=== PATIENT | male | born 1945 | race Caucasian/White ===

== ENCOUNTER 2016-11-01 15:09 | Inpatient (IN) | payer MEDICARE, OTHER ==
[~2016-11-01] VITALS: Ht 172.7 cm; Wt 61.1 kg
[2016-11-01 15:13] VITALS: BP 152/82; PULSE 78; RESP 16; O2SAT 98
--- NOTE | 2016-11-01 16:06 | DRSVH ---
PROCEDURE: X-RAY CHEST ONE VIEW, PORTABLE ([id number]) INDICATIONS: CP TECHNIQUE: One view of the chest was acquired. COMPARISON: None. FINDINGS: Surgical changes and devices: None. Lungs and pleura: Normal appearance of streaky opacity within the right base. Mediastinum: Mediastinal contours appear normal. Heart size is normal. Bones and chest wall: No suspicious bony lesions. Overlying soft tissues appear unremarkable. IMPRESSION: Minimal right basilar streaky opacity. This could represent atelectasis, focal edema or p otentially developing infiltrate. Dictated by: Melissa Amaya M.D. on 11/01/2016 at 16:01 Approved by: Melissa Amaya M.D. on 11/01/2016 at 16:04
[2016-11-01 16:07] LABS: BASOPHILS % (AUTO) 0.3 % (0-3); EOSINOPHILS % (AUTO) 0.9 % (0-5); MONOCYTES % (AUTO) 5.3 % (4-12); Mean Corpuscular Volume 96.8 fL (81-100); NEUTROPHILS % (AUTO) 80.3 % (40-74); Platelet Count 216 bil/L (150-400)
--- NOTE | 2016-11-01 16:13 | ED.REPORT ---
HPI-Chest Pain 40 and Over Date of Service Nov 01, 2016 ED Provider: Rush Shi MD A 71 year old male with a history of DM and hypothyroidism presents to the ED with intermittent chest pain onset 1.5 weeks ago, while hiking. The patient had a stress test yesterday, which was not immediately alarming but "brought up some concerns" per the patient, although he cannot recall the exact findings. This morning, the patient experienced one hour of dull, constant substernal chest pain rated 5/10 onset an hour after waking up and another three hour episode this afternoon from [id number]. The patient took ASA today and Nitro x1 just prior to arrival, with relief of his pain. He stopped taking his prescribed Metoprolol for the stress test but restarted this medication last night. The patient denies shortness of breath, nausea, diaphoresis, fever, cough , constipation, abdominal pain, melena, hematochezia, or other symptoms. He has never had similar symptoms in the past. Nursing Notes Stated Complaint: CHEST PAIN Chief Complaint: Chest Pain Nursing Notes Reviewed: Yes Allergies: Coded Allergies: No Known Allergies (Unverified , 11/01/16) Scheduled Aspirin Chew (Aspirin Chew) 81 Mg Chew 81 MG PO QAM Glipizide (Glipizide) 10 Mg Tablet 10 MG PO BIDWM Levothyroxine (Levothyroxine) 150 Mcg Tablet 150 MCG PO QAM Lovastatin (Lovastatin) 20 Mg Tablet 40 MG PO HS Metformin (Glucophage) 1,000 Mg Tablet 1,000 MG PO BIDWM Metoprolol Tartrate (Metoprolol Tartrate) 25 Mg Tablet 25 MG PO BID Scheduled PRN Nitroglycerin SL (Nitroglycerin SL) 0.4 Mg Tab.subl 0.4 MG SL Q5MIN PRN PRN For Chest Pain General Time Seen by MD: 16:12 Chief Complaint Chest pain Hx Obtained From: Patient Arrived By: Walk-in Sudden in Onset?: Yes Onset Occurred: More than a week ago... (1.5 weeks ago, most recent episode onset 1100 this morning) Symptom Duration: Intermittent Location: : Substernal Quality: Painful Severity: Current: Moderate Severity: Maximum: Moderate Associated with: Denies: Cough, non-productive, Diaphoresis, Fever, Nausea, Shortness of Breath Pertinent Negative: Relieved by nothing Context Related History: Reports: Diabetes mellitus Recent Healthcare: Recent doctor visit Similar Sx Previous: No Past Medical History Past Medical History Diabetes type 2 Hypothyroid Past Surgical History None reported Family History Denies cardiac history Father of liver cancer Smoking History Former Smoker Social History Other Social History: Ambulatory Status Independent Review of Systems Constitutional: Denies: Fever Respiratory: Reports: Non-productive cough, Denies: Shortness of breath Cardiovascular: Reports: Chest pain GI: Denies: Abdominal pain, Constipation, Hematochezia, Melena, Nausea, Vomiting Skin: Denies Diaphoresis Complete sys rev & neg: except as marked. Physical Exam Initial Vital Signs Vital Signs (First) Date Time Temp Pulse Resp B/P Pulse Ox O2 Delivery O2 Flow Rate FiO2 11/01/16 15:13 36.6 78 16 152/82 98 Room Air Initial VS: Reviewed Head / Eyes: Atraumatic, Normocephalic Skin: Warm, Dry, No cyanosis Neurologic: Alert, Oriented, Nonfocal Psychiatric: Mood/affect normal, Behavior normal, Normal thought content General/Constitutional: Awake, Alert Respiratory / Chest: Breath sounds NL, Breath sounds = bilat, No respiratory distress Cardiovascular: Heart rate NL, Regular rhythm, Heart sounds NL, No gallop, No murmurs, No rubs Abdomen: Soft, Non-tender Interpretation & Diagnostics Lab Results Interpretation Result Diagram: 11/01/16 1553 11/01/16 1553 Test 11/01/16 15:53 White Blood Count 6.4th/mm3 (3.8-10.1) Red Blood Count 4.31mil/mm3 (4.40-5.80) Hemoglobin 13.8g/dL (13.8-17.2) Hematocrit 41.7% (41.0-50.0) Mean Corpuscular Volume 96.8fL (81-100) Mean Corpuscular Hemoglobin 32.0pg (27.0-35.0) Mean Corpuscular Hemoglobin Concent 33.1% (32.0-37.0) Red Cell Distribution Width 12.0% (12.3-15.4) Platelet Count 216bil/L (150-400) Neutrophils (%) (Auto) 80.3% (40-74) Lymphocytes (%) (Auto) 13.2% (14-46) Monocytes (%) (Auto) 5.3% (4-12) Eosinophils (%) (Auto) 0.9% (0-5) Basophils (%) (Auto) 0.3% (0-3) Sodium Level 138mEq/L (134-144) Potassium Level 4.7mEq/L (3.5-5.2) Chloride Level 100mEq/L (97-108) Carbon Dioxide Level 22mmol/L (18-29) Blood Urea Nitrogen 22mg/dL (8-27) Creatinine 1.07mg/dL (0.76-1.27) Estimat Glomerular Filtration Rate 72mL/min (>59) Glucose Level 262mg/dL (60-99) Calcium Level 9.5mg/dL (8.5-10.1) Magnesium Level 2.0mg/dL (1.6-2.6) Total Bilirubin 0.2mg/dL (0.0-1.2) Aspartate Amino Transf (AST/SGOT) 19U/L (0-50) Alanine Aminotransferase (ALT/SGPT) 15U/L (0-44) Alkaline Phosphatase 55U/L (25-160) Total Protein 7.0g/dL (6.4-8.4) Albumin 4.2g/dL (3.4-5.0) Thyroid Stimulating Hormone (TSH) 0.076uIU/mL (0.450-4.500) Hold Rao Top Tube Received (Received) ECG Interpretation ECG Interpretation: Sinus rhythm rate 75 Anteroseptal infarct, age indeterminant Time: 15:26 Interpreted by: ED physician ECG Interpretation: Sinus rhythm rate 71 Anteroseptal infarct, age indeterminant Lateral leads also involved Lateral T-wave inversions and ST changes resolved. Time: 16:44 Interpreted by: ED physician ECG Interpretation: Sinus rhythm rate 67 Nonspecific intraventricular conduction delay Anteroseptal infarct, age indeterminate Lateral leads also involved Nothing acute Time: 18:23 Interpreted by: ED physician X-Ray Chest Interpretation Chest Xray Interpretation: IMPRESSION: Minimal right basilar streaky opacity. This could represent atelectasis, focal edema or potentially developing infiltrate. Dictated by: Melissa Amaya M.D. on 11/01/2016 at 16:01 View: Portable, 1 view Interpretation / Wet Read by: Interpret - Radiologist Re-Eval/Medical Decision Med Decision/Clinical Course 71 year old male with recent onset of anginal type symptoms and an abnormal stress test yeseterday. Two episodes of non-exertional CP today, initail ECG suggestive of ischemia and changes improved with rest. Now pain free. On B marek and statin and ASA. heparin drip started. antiplatelet agent started. Will admit to hospitalist with cardiology conuslting. Time of Eval: 17:57 Patient Status: Condition improved Re-Evaluation/Progress Note: Discussed with patient lab and x-ray results, diagnosis, and plan for admit. Patient agrees with plan for care and all questions were addressed. Consultation #1: Referral / Consult Name: Madison Andrade MD Consulted With: Cardiology Call Returned at: 17:20 Club Lounge Attendant: Agrees with eval, Agrees with plan Note: Discussed patient's case. Recommends bed rest and Brilinta. Consultation #2: Referral / Consult Name: Nagi Mukherjee MD Consulted With: Hospitalist Call Returned at: 18:00 Club Lounge Attendant: Agrees with eval, Agrees with plan, Accepts admit Counseled Regarding: Diagnosis, Lab results, Need for admission Discharge & Departure Primary Impression: NSTEMI (non-ST elevated myocardial infarction) Disposition: ADMITTED TO HOSPITAL Discharge Condition All VS Reviewed: Yes Condition: Improved Referrals: Scotty Renee MD Attestation Portions of this note were transcribed by Xenia Montiel. I, Dr. Shi, personally performed the history, physical exam, and medical decision-making; I reviewed and confirmed the accuracy of the information in the transcribed note. Signed by: Julia Vegas, 11/01/2016, 23:15 copies to: Scotty Renee MD, Donald L MD Nov 01, 2016 16:13 XENIA MONTIEL Nov 01, 2016 16:25 Rush Shi MD Nov 01, 2016 16:13 XENIA MONTIEL Nov 01, 2016 16:25
[2016-11-01 16:25] LABS: TROPONIN T 0.022 ug/L (0.0-0.011)
[2016-11-01] MEDS ORDERED: Nitroglycerin 2% 1 Gm Ointment TOPICAL SCH (16:30)
[2016-11-01 17:06] VITALS: BP 133/70; PULSE 71; RESP 16; O2SAT 97
[2016-11-01] MEDS ORDERED: Heparin 5,000 Unit/mL Inj IVPUSH ONE (17:25)
[2016-11-01] MEDS ORDERED: Heparin 25K Unit/500mL 0.45 NS 25,000 UNIT in IV Premix 1 EACH IV SCH (17:25)
[2016-11-01] MEDS ORDERED: Heparin 5,000 Unit/mL Inj IVPUSH PRN (17:25)
[2016-11-01] MEDS ORDERED: Senna-Docusate 8.6-50 mg Tablet PO PRN (17:45)
[2016-11-01] MEDS ORDERED: Atropine 1 mg/10 mL (Code) Syringe IVPUSH PRN (17:45)
[2016-11-01] MEDS ORDERED: Polyethylene Glycol (PEG) 17 Gm Powder PO PRN (17:45)
[2016-11-01] MEDS ORDERED: Ondansetron 2 mg/mL 2 mL Inj IVPUSH PRN (17:45)
[2016-11-01] MEDS ORDERED: Alum-Mag Hydrox-Simeth 30 mL Suspension PO PRN (17:45)
[2016-11-01] MEDS ORDERED: GLIP10TA10 PO (18:09)
[2016-11-01] MEDS ORDERED: LEVO150T5 PO (18:09)
[2016-11-01] MEDS ORDERED: METO25TA6 PO (18:09)
[2016-11-01] MEDS ORDERED: ASPI81TA3 PO (18:09)
[2016-11-01] MEDS ORDERED: METF1000 PO (18:09)
[2016-11-01] MEDS ORDERED: LOVA20TA PO (18:09)
[2016-11-01] MEDS ORDERED: NITR0.4T6 SL (18:09)
[2016-11-01 18:10] LABS: Creatine Kinase 84 U/L (21-232)
[2016-11-01 18:32] VITALS: BP 122/70; PULSE 73; RESP 17; O2SAT 98
[2016-11-01] MEDS ORDERED: Glucose 40% Oral Gel 15 Gm Tube PO PRN (18:45)
[2016-11-01 19:30] VITALS: BP 147/81; PULSE 76; RESP 17; O2SAT 99
[2016-11-01 19:45] VITALS: BP 131/74; PULSE 70; RESP 16; O2SAT 98
--- NOTE | 2016-11-01 19:45 | NUR ---
Admission to [facility] Room 2002 Pt arrived on a gurney with and personal belongings and a Cardiac Heparin drip running at 800Units/Hr. Pt was able to walk from gurney in hallway to bed in room with a steady gait and no c/o chest pain, SOB, weakness, or dizziness. Pt is AOx3, NGUYEN, and VSS. Pt is to be made NPO at midnight for possible dental laboratory assistant in the AM. Pt normally uses glipizide and metformin for DM2 when at home. Pt is to use sliding scale Lispro during stay and pt has been educated on this.
[2016-11-01 20:08] LABS: APPEARANCE,URINE CLEAR (CLEAR,HAZY); COLOR,URINE YELLOW (YELLOW); OCCULT BLOOD,URINE TRACE (NEGATIVE); UROBILINOGEN,URINE NORMAL (NORMAL)
--- NOTE | 2016-11-01 20:13 | PCM.HPMED ---
Subjective Date of Service Nov 01, 2016 Primary Provider: Admitting Physician: Nagi Mukherjee MD Primary Care Physician: Scotty Renee MD Attending Physician: Nagi Mukherjee MD Admit Status: From the Emergency Department, Full Admit, [facility] Telemetry Chief Complaint: Chest pain History of Present Illness: Scotty Mcrea is a 71 year old male with Diabetes and hypothyroidism presents to [facility] emergency department with intermittent chest pain. Patient reported the onset was a weeks ago, while hiking. Episodes had been waxing and waning with intermittent onset. This morning, the patient experienced one hour of dull, constant substernal chest pain rated 5/10, non radiating and another three hour episode this afternoon from [id number]. The patient took ASA today and Nitro x1 just prior to arrival, with some relief of his pain. Denies shortness of breath, nausea, diaphoresis, fever, cough, constipation, abdominal pain, melena, hematochezia. He has never had similar symptoms in the past. He was prescribed Metoprolol for the stress test his abnormal stress test yesterday at [facility]. He took the first dose last night Case discussed with Dr Shi, he spoke to Dr Lantigua who recommended admission, Heparin drip as well as initiating Ticagrelor. Review of Systems: Pertinent positives as noted in HPI. All other systems were reviewed and are negative Allergies Coded Allergies: No Known Allergies (Unverified , 11/01/16) Home Medications Lovastatin 40 mg HS Metoprolol 25 mg bid Nitroglycerine PRN Aspirin 81 mg daily Glipizide 10 mg bid Levothyroxine 150 mg daily Metformin 1000 mg bid PMH Diabetes type 2 Hypothyroid Hyperlipidemia . Surgical History None reported Family History Denies cardiac history Father of liver cancer Sister had pacemaker placed Social History Hx Alcohol Use: No Hx Substance Use: No Hx Tobacco Use: Yes Smoking Status: Former Smoker Living Arrangement: with Family (with ) Exam Vital Signs Vital Sign - Last Date Time Temp Pulse Resp B/P Pulse Ox O2 Delivery O2 Flow Rate FiO2 11/01/16 17:06 36.7 71 16 133/70 97 Room Air Exam General: Alert, Oriented X3, Cooperative, No acute Distress Eyes: PERRLA, Scleral Anicteric Mouth: Mouth Normal, Mucous Membranes Moist/Rodey Neck: Supple, no Thyromegaly, trachea central. Chest & Lungs: Clear to auscultation & percussion, No adventitious breath sounds, no crackles, no wheeze Cardiovascular: Normal S1, Normal S2, No Murmurs/Rubs/Gallops, Regular Rate/ Rhythm, (No JVD, no peripheral edema) Pulses: Radial (present and equal), Dorsalis Pedi (present and equal) Abdomen: Soft, Non-tender, Non-distended, Normoactive bowel tones. Musculoskeletal: Unremarkable. Normal range of motion, no swollen or erythematous joints Extremities: No edema, no cyanosis, no clubbing. Skin: No rashes. Warm and dry, no erythematous areas Neurological: Grossly neurologically intact, Normal Speech, Sensation Intact Lymphatic: Lymph nodes Cervical and Axillary not palpable. Lab and Diagnostics Labs Laboratory Tests Test 11/01/16 15:53 White Blood Count 6.4th/mm3 (3.8-10.1) Red Blood Count 4.31mil/mm3 (4.40-5.80) Hemoglobin 13.8g/dL (13.8-17.2) Hematocrit 41.7% (41.0-50.0) Mean Corpuscular Volume 96.8fL (81-100) Mean Corpuscular Hemoglobin 32.0pg (27.0-35.0) Mean Corpuscular Hemoglobin Concent 33.1% (32.0-37.0) Red Cell Distribution Width 12.0% (12.3-15.4) Platelet Count 216bil/L (150-400) Neutrophils (%) (Auto) 80.3% (40-74) Lymphocytes (%) (Auto) 13.2% (14-46) Monocytes (%) (Auto) 5.3% (4-12) Eosinophils (%) (Auto) 0.9% (0-5) Basophils (%) (Auto) 0.3% (0-3) Sodium Level 138mEq/L (134-144) Potassium Level 4.7mEq/L (3.5-5.2) Chloride Level 100mEq/L (97-108) Carbon Dioxide Level 22mmol/L (18-29) Blood Urea Nitrogen 22mg/dL (8-27) Creatinine 1.07mg/dL (0.76-1.27) Estimat Glomerular Filtration Rate 72mL/min (>59) Glucose Level 262mg/dL (60-99) Calcium Level 9.5mg/dL (8.5-10.1) Magnesium Level 2.0mg/dL (1.6-2.6) Total Bilirubin 0.2mg/dL (0.0-1.2) Aspartate Amino Transf (AST/SGOT) 19U/L (0-50) Alanine Aminotransferase (ALT/SGPT) 15U/L (0-44) Alkaline Phosphatase 55U/L (25-160) Total Creatine Kinase 84U/L (21-232) Creatine Kinase MB 5.1ng/mL (0.0-10.4) Creatine Kinase MB % % (0.0-5.0) Troponin T 0.022ug/L (0.0-0.011) Total Protein 7.0g/dL (6.4-8.4) Albumin 4.2g/dL (3.4-5.0) Thyroid Stimulating Hormone (TSH) 0.076uIU/mL (0.450-4.500) Hold Rao Top Tube Received (Received) Result Diagram: 11/01/16 1553 11/01/16 1553 X-Rays, CTs and MRIs X-RAY CHEST ONE VIEW, PORTABLE 11/01 Bones and chest wall: No suspicious bony lesions. Overlying soft tissues appear unremarkable. IMPRESSION: Minimal right basilar streaky opacity. This could represent atelectasis, focal edema or potentially developing infiltrate. Dictated by: Melissa Amaya M.D. on 11/01/2016 at 16:01 Approved by: Melissa Amaya M.D. on 11/01/2016 at 16:04 Assessment & Plan Scotty Mcrae is a 71 year old male with Diabetes and hypothyroidism presents to [facility] emergency department with intermittent chest pain 1. Non ST elevation Myocardial infarct. Present on admission Risks factors for acute coronary syndrome includes sex and age, Diabetes, Hyperlipidemia and former smoker. - monitor on telemetry - Heparin drip for anticoagulation - Antiplatelet therapy with Aspirin 81 mg and Ticagrelor - trending cardiac biomarkers - nothing by mouth after midnight - anticipate possible Cardiac catheterization tomorrow 2. Diabetes Type 2 - holding Metformin and Glipizide - medium Lispro correction algorithm - checking A1c 3. Hypothyroidism - TSH low - decreasing Synthroid dose to 100 mcg daily - recommend checking TSH in 4-6 weeks 4. Dyslipidemia - checking lipids - continuing Lovastatin - Acetaminophen as needed for mild pain/fever/headache - Bowel regimen as needed - Antiemetic as needed Patient admitted under inpatient status with expected length of stay > 2 midnights for severity of present symptoms, complexities of treatment plan and risk for adverse event . Resuscitation Status: CPR: Attempt Resuscitation Nagi Mukherjee MD Nov 01, 2016 18:37
[2016-11-01] MEDS: Insulin LISPRO 300 Unit/3 mL Inj SUBQ SCH (20:26)
[2016-11-01 23:18] VITALS: BP 125/69; PULSE 71; RESP 16; O2SAT 98
[2016-11-01] MEDS: 0.9% Sodium Chloride 1,000 ML IV SCH (23:18)
[2016-11-02] VITALS (10 sets, daily range): BP systolic 102–137; BP diastolic 57–99; PULSE 67–89; RESP 16–20; O2SAT 96–98
[2016-11-02] MEDS: Sodium Chloride LOK Flush 10 mL Syringe IVFLUSH SCH ×3 (00:30→16:30)
[2016-11-02 01:20] LABS: TROPONIN T 0.079 ug/L (0.0-0.011)
[2016-11-02 05:34] LABS: BASOPHILS % (AUTO) 0.4 % (0-3); EOSINOPHILS % (AUTO) 0.9 % (0-5); MONOCYTES % (AUTO) 7.5 % (4-12); Mean Corpuscular Hemoglobin 31.8 pg (27.0-35.0); Mean Corpuscular Volume 95.8 fL (81-100); NEUTROPHILS % (AUTO) 75.6 % (40-74); Platelet Count 220 bil/L (150-400)
[2016-11-02] MEDS: 0.9% Sodium Chloride 1,000 ML IV SCH (06:07)
[2016-11-02] MEDS: Insulin LISPRO 300 Unit/3 mL Inj SUBQ SCH ×4 (08:00→21:41)
[2016-11-02] MEDS ORDERED: Heparin 1,000 Unit/mL 10 mL Inj ONE (10:03)
[2016-11-02] MEDS ORDERED: Heparin 1,000 Units/500 mL NS Premix IV ONE (10:03)
[2016-11-02] MEDS ORDERED: 0.9% Sodium Chloride 2,000 ML ONE (10:03)
[2016-11-02] MEDS ORDERED: fentaNYL-PF 50 mCg/mL 2 mL Inj ONE ×2 (10:35→12:10)
[2016-11-02] MEDS ORDERED: Atropine 1 mg/10 mL (Code) Syringe ONE (11:24)
[2016-11-02] MEDS ORDERED: Phenylephrine/NS-PF 100 mCg/mL 5 mL Syringe IVPUSH ONE (11:24)
--- NOTE | 2016-11-02 11:49 | NUR ---
Social Work: Initial Assessment Attempt Pearl Digger attempted to complete initial assessment, but patient is off of the floor for and echo. SW will continue to try and complete initial assessment. Michaela Alex, BEATRICE, ACM
[2016-11-02] MEDS ORDERED: ALPRAZolam 0.5 mg Tablet PO ONE (13:05)
[2016-11-02] MEDS ORDERED: Abciximab Bolus 2 mg/mL 5 mL Inj ONE (13:28)
[2016-11-02] MEDS ORDERED: 0.9% Sodium Chloride 250 ML BOLUS IV PRN (14:45)
[2016-11-02] MEDS ORDERED: Sodium Chloride LOK Flush 10 mL Syringe IVFLUSH PRN (14:45)
[2016-11-02] MEDS ORDERED: Atropine 1 mg/10 mL (Code) Syringe IVPUSH PRN (14:45)
[2016-11-02] MEDS ORDERED: HYDROcodone-APAP 5-325 mg Tablet PO PRN (14:45)
[2016-11-02] MEDS ORDERED: Ondansetron 2 mg/mL 2 mL Inj IVPUSH PRN (14:45)
[2016-11-02] MEDS ORDERED: 0.9% Sodium Chloride 400 ML (4 HRS) IV ONE (14:45)
--- NOTE | 2016-11-02 15:20 | CONS ---
[address] [address] CONSULTATION REPORT PATIENT: COOKIE ANGLIN : 1945 MR#: [id number] ADMIT: 11/01/2016 JOB ID: [id number] DATE OF SERVICE: 11/02/2016 CHIEF COMPLAINT: I was asked by the hospital team to consult on this patient given chest pain, abnormal EKG, and evidence for non-STEMI. HISTORY OF PRESENT ILLNESS: The patient is a 71-year-old man with past medical history significant for hypertension, hyperlipidemia, as well as hypothyroidism and diabetes. He told me that he has never been in the hospital before. He has been noticing exertional chest pain and actually had a stress test performed by his primary care provider during which he had chest pain and EKG changes. He was in the process of being referred to see a supervisor evaporator based upon the stress test but things got too bad and he started getting progressively worse chest pain. He came to the ED last night and had abnormal EKG changes in the anterolateral leads suggestive of LAD disease. He was admitted to the hospital, placed on heparin, and is now chest pain free. In the interim, his troponin has become mildly positive. As noted before, until recently he has not had any problems with chest pain, shortness of breath. He only recently started getting worsening discomfort. He denies orthopnea, PND, lower extremity edema, palpitations, presyncope, syncope. PAST MEDICAL HISTORY/PROBLEM LIST: 1. Hyperlipidemia. 2. Diabetes. 3. Hypothyroidism. MEDICATIONS AT HOME: Include: 1. Lovastatin 40 mg q.h.s. 2. Metoprolol 25 b.i.d. 3. Aspirin 81 mg a day. 4. Glipizide 10 b.i.d. 5. Levothyroxine 150 daily. 6. Metformin 1000 mg b.i.d. ALLERGIES: No known drug allergies. SOCIAL HISTORY: Former tobacco use. No significant alcohol use. FAMILY HISTORY: Sister had a pacemaker placed. REVIEW OF SYSTEMS: Overall health: No fevers, chills, night sweats, or weight loss. GI: Denies problems with ulcers or blood in his stool. : No dysuria, no hematuria. Pulmonary: No history of lung disease. Neuro: No history of chronic headaches or strokes. Endocrine: No heat or cold intolerance. His TSH is low and they made modification of his thyroid dose. Musculoskeletal: No joint pain or swelling. Derm: No rashes or skin breakdown. Heme: No easy bruising or bleeding. ENT: No difficulties: No sore throat. Ophtho: No vision changes. Psych: No acute issues. All review of systems on a 12-point review of system are negative. PHYSICAL EXAMINATION: Blood pressure is 131/71. He is afebrile. Heart rate 75, sats are 98% on room air. General: In no acute distress. Speaking in full sentences without apparent shortness of breath. Head and neck exam: Normocephalic, atraumatic. Neck: No obvious JV distention. Heart: Regular rate and rhythm without murmurs, gallops, rubs appreciated. Lungs clear to auscultation bilaterally. Abdomen soft, nondistended, nontender. Back: No CVA tenderness to palpation. Extremities are warm. No appreciable edema, 2+ distal pulses. Skin without breakdown appreciated. Neurologic: Alert, oriented x3. Gait is not tested. Psych: Appropriate mood affect. ENT: Mucous membranes moist. No erythema. Ophtho: Vision grossly intact. EKG shows sinus rhythm with T-wave changes in the anterolateral leads concerning for left anterior descending artery disease. LABORATORIES: Show a white count 5.7, H and H 12.9, 38.9, platelets 220,000. Chemistry shows sodium 140, potassium 4.3, chloride and bicarb 103 and 21, respectively. BUN and creatinine 17 and 0.81. Troponin went from 0.079 to 0.161. CK-MB was elevated but not CK. LDL 68, HDL 64. Free T4 was sent and is at the upper limits of normal. The TSH was low. IMAGING: Shows a chest x-ray that shows minimal right basilar streaky opacity. Could represent atelectasis or question developing infiltrate. CURRENT MEDICATIONS: Include: 1. Metoprolol 25 b.i.d. 2. Aspirin 81 mg a day. 3. Levothyroxine 100 mcg a day. 4. Heparin drip. 5. Lipitor 10 mg q.h.s. (I presume this is because lovastatin is not available). 6. He is not on diabetic meds at this time. IMPRESSION: The patient has a history of hyperlipidemia, hypertension. He has progressive exertional chest discomfort and a abnormal treadmill test. He was in the process of getting a supervisor evaporator but had worsening symptoms. He now presents with an abnormal electrocardiogram, mildly elevated troponin. PLAN: I have discussed cardiac catheterization with him. I have discussed the risks and benefits. I discussed different types of stents including bare-metal stents as well as medicated stents. I explained the different lengths of time that Plavix and aspirin would be needed if he had a medicated stent versus a bare-metal stent. Also discussed the different risks of re-narrowing. I also discussed the possibly that if there is significant other disease, bypass would have to be considered. He denies any bleeding problems. He denies any upcoming surgeries that require him to hold Plavix. He feels that he would be able to tolerate whatever kind of stent is placed in him. I spent one hour reviewing the patient's records, speaking with him and examining him as well as communicating with the hospitalist team ROSIE
--- NOTE | 2016-11-02 15:40 | NUR ---
[facility] signed
--- NOTE | 2016-11-02 16:04 | DRSVH ---
[facility] [address] [place] [place] [address] Echocardiogram Report Name: COOKIE ANGLIN te: 11/02/2016 Height: 68 in Hospital Exam Location: [facility] Weight: 137 lb Gender: Male BSA: 1.7 m2 : 1945 Age: 71 yrs BP: 137/71 mmHg Reason For Study: CHEST PAIN Ordering Physician: EMMA JESUS Performed By: Thang Ferrer Referring Physician: Dr. Cookie Renee Interpretation Summary 1. Normal left ventricular size and wall thickness with wall motion abnormalities as noted below. The estimated EF is 45 to 50% 2. Normal right ventricular size and systolic function 3. No evidence for significant valvular pathology There is no old study for comparison Procedure: A two-dimensional transthoracic echocardiogram with color flow and Doppler was performed. The study quality was technically good. There is no prior echocardiogram noted for this patient. The patient was in normal sinus rhythm during the exam. Left Ventricle: The left ventricle is normal in size. There is normal left ventricular wall thickness. No thrombus is appreciated in the sampled views. The ejection fraction is estimated to be 45-50%. EF by biplane assessment is 51%. Hypokinesis of the distal anterior septum and apical inferior septum. There is also hypokinesis of the distal anterior and apical anterolateral and inferior segments. Right Ventricle: The right ventricle is normal in size and function. Atria: Both atria are normal in size. No color doppler evidence for an ASD. Mitral Valve: The mitral valve is normal in structure and function. There is trace mitral regurgitation. Aortic Valve: The aortic valve is trileaflet. The aortic valve opens well. Mild sclerotic changes. No aortic regurgitation is present. Tricuspid Valve: The tricuspid valve leaflets are thin and pliable. No tricuspid regurgitation. Pulmonary artery pressures cannot be estimated because of the lack of a measurable TR jet velocity. Pulmonic Valve: The pulmonic valve is not well seen, but is grossly normal. There is trace pulmonic regurgitation. Great Vessels: The aortic root is normal size. The ascending aorta could not be visualized. The pulmonary artery is normal size. The IVC is of normal diameter and collapses greater than 50% with a sniff. This suggests a low right atrial pressure of 3 mm Hg. Pericardium/ Pleura There is no pericardial effusion. There is no pleural effusion. MMode/2D Measurements & Calculations LVIDd: 4.7 cm LA dimension: 3.2 cm RA long axis: 3.6 cm Ao root diam LVIDs: 2.8 cm FS: 39.8 % LA A2 area: 16.1 cm RA area: 13.9 cm Aortic Jxn EPSS: 0.42 cm LA A4 area: 17.7 cm RA vol: 45.9 ml : 2.2 cm IVSd: 0.96 cm LA length (vol): 4.8 cm RA : 26.4 ml/m2 LVPWd: 0.97 cmLA vol: 50.1 ml LA vol index: 28.8 ml/m IVC diam: 1.9 cm EDV(MOD-sp2) LV riggs. diameter/BSA LV sys. diameter/BSA (cm/m^2): 2.7 (cm/m^2): 1.6 Doppler Measurements & Calculations Ao V2 max MV E max howard MV E/A: 0.79 PA V2 max: 92.6 cm/sec : 102.3 cm/sec : 52.5 cm/sec Med Peak E' Howard PA mean P.1 mmHg Ao max PG MV A max howard PA Accel Time: 0.11 sec : 4.2 mmHg : 66.6 cm/sec E/E' med: 10.2 Ao mean PG Pulm A Revs Dur : 2.4 mmHg MV A dur: 0.13 sec MV dec time Ao V2 mean PA V2 mean Pulm A Revs Dur - MV A : 0.17 sec : 74.5 cm/sec : 70.4 cm/sec Dur: -0.02 msec Ao V2 VTI PA pr(Accel) : 21.1 cm : 26.6 mmHg Reading Physician:04:04 PM
--- NOTE | 2016-11-02 17:02 | PCM.PNMED ---
Subjective Date of Service Nov 02, 2016 Subjective Patient states he is feeling better than when he presented to the hospital. He has no somatic complaints this time. He has several questions and is nervous regarding catheterization. Asymptomatic at time of evaluation, ROS del real-negative Exam Vital Signs Vital Sign - Last Date Time Temp Pulse Resp B/P Pulse Ox O2 Delivery O2 Flow Rate FiO2 11/02/16 14:45 70 16 124/99 11/02/16 09:23 36.9 98 Room Air Intake and Output 11/01/16 11/01/16 11/02/16 Cumulative From/Thru 15:00 23:00 07:00 11/01/16 15:13 - 11/02/16 06:14 Intake Total 1298 ml 1298 ml Output Total 1675 ml 1675 ml Balance -377 ml -377 ml Intake Oral 400 ml 400 ml IV Total 898 ml 898 ml Output Urine Total 1675 ml 1675 ml # Voids 3 3 Exam General: Laying in bed, no apparent distress. HEENT: Normocephalic, atraumatic, EOMI grossly, Cardiovascular: Regular rate and rhythm, no clicks murmurs rubs, peripheral pulses 2/4 equal bilaterally. No tenderness over the precordium. Pulmonary: Clear to auscultation bilaterally, no W/R/R. Abdominal: Soft to palpation, bowel sounds present 4, no hepatosplenomegaly. Negative rebound. Extremities: No edema appreciated. No tenderness, asymmetry. Neuro: Neurologically grossly intact, strength is equal bilaterally upper and lower extremities. MSK: Able to move extremities on their own volition, strength 5 out of 5 equal bilaterally to upper and lower extremities. IVs and Medications Medications Reviewed: Medications were reviewed in detail Lab and Diagnostics Result Diagram: 11/02/1615 11/02/16 0515 X-Rays, CTs and MRIs X-RAY CHEST ONE VIEW, PORTABLE 11/01 Bones and chest wall: No suspicious bony lesions. Overlying soft tissues appear unremarkable. IMPRESSION: Minimal right basilar streaky opacity. This could represent atelectasis, focal edema or potentially developing infiltrate. Dictated by: Melissa Amaya M.D. on 11/01/2016 at 16:01 Approved by: Melissa Amaya M.D. on 11/01/2016 at 16:04 Cardiac Echo Impressions Complete echocardiogram performed 11/02/2016 Interpretation Summary 1. Normal left ventricular size and wall thickness with wall motion abnormalities as noted below. The estimated EF is 45 to 50% 2. Normal right ventricular size and systolic function 3. No evidence for significant valvular pathology There is no old study for comparison Assessment & Plan Scotty Mcrae is a 71 year old male with Diabetes and hypothyroidism presents to [facility] emergency department with intermittent chest pain, found to have elevated troponins and rising. Underwent cardiac catheterization necessitating single stent placement, currently recovering. 1. Non ST elevation Myocardial infarct. Present on admission - Risks factors for acute coronary syndrome includes sex and age, Diabetes (A1c 7.6), Hyperlipidemia and former smoker. - Troponin continued to rise throughout night prior to catheterization - Catheterization: required one stent to the LAD (electronic record system having difficulties at time of this dictation, specifics of affected coronary artery and percent occlusion not available to me at this time.) - Echocardiogram: EF 45-50% otherwise normal - Continue on on telemetry - Stop heparin - Antiplatelet therapy with Aspirin 81 mg and clopidogrel 75 mg daily - Continue metoprolol tartrate 25 mg twice a day - Heart healthy diet 2. Chronic Diabetes Type 2, present on admission, stable - holding Metformin and Glipizide - medium Lispro correction algorithm - A1c 7.6 3. Chronic Hypothyroidism, present on admission, stable - TSH low, T4 high normal. -Continue Synthroid dose to 100 mcg daily - Follow-up as an outpatient. In 4-6 weeks for reassessment. 4. Chronic Dyslipidemia, present on admission, controlled. - Lipids at goal - continuing Lovastatin - Acetaminophen as needed for mild pain/fever/headache - Bowel regimen as needed - Antiemetic as needed Disposition: Most likely discharge home tomorrow will need to follow-up with cardiology, and primary care. No foreseeable barriers to discharge at this time Pain Evaluation: Adequate Pain Control GI Prophylaxis: Not indicated VTE Prophylaxis: Other (oral clopidogrel) Resuscitation Status: CPR: Attempt Resuscitation Time spent 35 minutes Attending Statement The patient was seen and examined together with Dr. Pritchett on 11/02/16 and I have added additional information to the note above. Magdi Pritchett DO Nov 02, 2016 17:02 Binta Agee DO Nov 02, 2016 17:49
--- NOTE | 2016-11-02 17:46 | NUR ---
Groin site/Tele No reports of chest pain/pressure/discomfort. BP within normal limits, tele SR 60s-70s with inverted T wave and occasional PVC. 2x2 gauze dressing saturated -- dressing changed, off bedrest at 1845. No reports of SOB/dizziness. SPO2 on RA 98%. 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 Voiding without complication. Patient is alert and oriented x3, NGUYEN, reports full sensation -- states mild numbness/tingling in bilateral toes r/t DM.
--- NOTE | 2016-11-02 18:20 | CS94 ---
[address] [address] DIAGNOSTIC CARDIAC CATHETERIZATION PATIENT: COOKIE ANGLIN : 1945 MR#: [id number] ADMIT: 11/01/2016 JOB ID: [id number] SERVICE DATE: 11/02/2016 PROCEDURES PERFORMED: Left heart catheterization with coronary angiography. Intravascular ultrasound of the left anterior descending artery. Balloon angioplasty with stent placement in the left anterior descending artery. INDICATIONS: Gentleman with progressive anginal symptoms. Now with admitted with a non-ST- elevation IN. He presents for further assessment by cardiac catheterization. DESCRIPTION OF PROCEDURE: Informed consent was obtained. Patient brought to the cath laboratory. Bilateral groins were prepped and draped in sterile fashion. The area over the right femoral artery was anesthetized with lidocaine using micropuncture kit and modified Seldinger technique. Access was obtained and a 5-Mexican sheath was advanced. Next, a 5-Mexican JL4 catheter was advanced over a wire and used to cannulate the left coronary artery and angiography was obtained. This catheter was removed and a 5-Mexican JR4 catheter was advanced over a wire and used to cannulate the right coronary artery and angiographic views obtained. This was then removed over a wire and plans were made for intervention of left anterior descending artery. An angiographic view of the right femoral access site was reviewed prior to upsizing to a 6-Mexican sheath. Next, a 6-Mexican CLS 3.5 guide was advanced over a wire and used to cannulate the left coronary and one angiographic view was obtained prior to the intervention. Heparin was given for anticoagulation and was checked to be therapeutic by ACT during the case. A REM ENTERPRISEwater wire was advanced across the LAD stenosis. This was confirmed to be intraluminal. Next, a 2.5 x 12 mm balloon was advanced to the area of stenosis and inflated to nominal pressures. This restored good flow into the vessel. Next, IVUS was advanced into the left anterior descending artery to assess the size of the vessel. This vessel appeared in the range of 3.5 mm. There was no significant calcification appreciated as well. Ultimately, based upon the IVUS, a 3.5 x 12 mm balloon was advanced to the area of stenosis, inflated to nominal pressures. This appeared to be about the right size. Therefore, plans were made for placement of a 3.5 mm stent. Ultimately, a 3.5 x 28 mm Xience drug-eluting stent was advanced to the LAD. This was carefully placed and ultimately deployed at 10 atmospheres. After removal of the delivery balloon, IVUS was advanced into the vessel and this showed that the stent was well apposed to the wall but could benefit from post dilation in the mid segment. Therefore, a 3.5 x 12 mm noncompliant balloon was advanced to the area of stenting. This was inflated in the range of 12-14 atmospheres. Followup angiographic views after intracoronary nitroglycerin and stenting revealed an excellent angiographic result with brisk flow in the artery. No residual stenosis. No evidence of dissection. The wire and guide was removed and a pigtail catheter advanced to left ventricle under fluoroscopic guidance. Left ventricular pressure was obtained and following pullback, aortic pressures were obtained. The case was ended and the angiographic view of the right femoral access site was reviewed prior to achieving hemostasis with a StarClose device. There were no complications. FINDINGS: Coronaries. Left main: This does have some mild disease but nothing high grade. Left anterior descending artery: There is evidence of plaque in the proximal segment which appears mild to moderate in degree. In the early part of the mid vessel, there is a very high-grade stenosis estimated at 99%. There is CASS 1-2 flow in the vessel. There was a small diagonal just prior to the occlusion which has no evidence of obstructive disease as well as a fairly large septal urology physician assistant. As noted, this area was wired. It was balloon dilated with a smaller balloon. IVUS was used to assess the size of the vessel. Ultimately a similarly sized balloon was used to dilate the area of interest followed by placement of a 3.5 x 28 mm stent which was then post dilated with a 3.5 noncompliant balloon. After stenting, this gave an excellent angiographic result with brisk flow in the artery. No residual stenosis. No evidence of dissection. Circumflex artery: This vessel has some at least mild disease in its proximal segment. It gives rise to two significant obtuse marginal branches which are branching but have no evidence of obstructive disease. Right coronary artery: This vessel has diffuse disease throughout in the proximal conduit segment. There was evidence for mostly mild to moderate disease. In the mid conduit segment there is diffuse disease with no stenosis greater than 30%. Distal conduit segment has only minor luminal irregularities as well as the distal branches which appeared to have only minor luminal irregularities. Right to left collaterals are seen filling the distal left anterior descending artery. HEMODYNAMICS: Left ventricular end-diastolic pressure is approximately 15 (post contrast). No gradient on pullback. Medications given in the case, please see conscious sedation record. Patient also given a loading dose of Plavix and ReoPro bolus x1. IMPRESSION: 1. 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 2. Successful IVUS of and stent placement in the left anterior descending artery. 3. End-diastolic pressure, approximately 15 (post contrast without evidence of gradient on pullback). MTDD
[2016-11-03] MEDS: Sodium Chloride LOK Flush 10 mL Syringe IVFLUSH SCH ×2 (02:01→09:08)
[2016-11-03 02:04] VITALS: BP 102/50; PULSE 71; RESP 16; O2SAT 96
[2016-11-03 03:00] LABS: Mean Corpuscular Hemoglobin 32.3 pg (27.0-35.0); Mean Corpuscular Volume 96.6 fL (81-100)
[2016-11-03 05:04] VITALS: PULSE 75
--- NOTE | 2016-11-03 06:30 | NUR ---
Groin Site/PIV Site Pt's heart catheter insertion site was slowly oozing sanguineous drainage during day shift, per report, and another site near the catheter insertion site has been slowly oozing sanguineous drainage. Pressure was applied to both sites and a new dressing of gauze with bio-occlusive was applied to each site. Pt has had no further drainage from either site. Pt has now been OOB and both sites continue to have no further drainage. Pt had a PIV site that was DC'd due to occlusion and that site too was prone to bleeding so pressure was applied to the site. Pt's DC'd PIV site is no longer bleeding and the dressing has of gauze with bio-occlusive has been removed.
[2016-11-03 08:29] VITALS: PULSE 85
[2016-11-03 09:04] VITALS: BP 113/64; PULSE 80; RESP 16; O2SAT 98
[2016-11-03] MEDS: Insulin LISPRO 300 Unit/3 mL Inj SUBQ SCH ×2 (09:13→12:00)
[2016-11-03] MEDS ORDERED: CLOP75TA28 PO (11:38)
[2016-11-03] MEDS ORDERED: LEVO150T5 PO (11:41)
--- NOTE | 2016-11-03 11:46 | PCM.DIMED ---
Discharge Instructions Date of Service Nov 03, 2016 Dates of Hospitalization Nov 01, 2016 at 17:53 Discharge Diagnosis Discharge Diagnosis Non-ST elevation myocardial infarct Type II diabetes, chronic Chronic hypothyroidism Dyslipidemia chronic Medication Instructions Your levothyroxine has been decreased from 150 g to 100 g. Please take this new medication and DO NOT continue the 150 g dose. Please follow-up with your primary care physician within 4-6 weeks for follow-up of your thyroid. You had a stent placed in your left anterior descending artery please continue to take Plavix daily for the next year along with your aspirin. Diet Heart Healthy Activity Other (gradually returned to her normal daily activities. Please take it easy for the next 2 days before returning to her normal daily activities.) Call your provider Fever or Chills, Shortness of breath, Bleeding, Chest pain, Weakness (unilateral ) Patient Instructions Follow-up Provider: Scotty Renee MD Follow-up with PCP in: 1 week (if an appointment has not already been made please call to schedule an appointment) Provider: Gisselle Ball MD Follow-up in: 2 weeks (please follow-up with Dr. Ball in 2-4 weeks. If you do not hear from her office please call to make an appointment.) Binta Agee DO Nov 03, 2016 11:40
--- NOTE | 2016-11-03 12:30 | PROG NOTE ---
[address] [address] PROGRESS NOTE PATIENT: COOKIE ANGLIN : 1945 MR#: [id number] ADMIT: 11/01/2016 JOB ID: [id number] DATE: 11/03/2016 CHIEF COMPLAINT: The patient came in with a non ST elevation AL. He is now status post stenting with a drug-eluting stent to the early mid LAD. Overnight, no arrhythmias on telemetry. SUBJECTIVE: He feels great. He denies chest pain, arm pain, increased shortness of breath. CURRENT MEDICATIONS: Include insulin, metoprolol 25 b.i.d., Lipitor 10 mg q.h.s., levothyroxine 100 mcg daily, Plavix 75 a day, aspirin 325 a day. PHYSICAL EXAMINATION: Vital signs: Blood pressure is 113/64, he is afebrile. Heart rate 80, sats are 98% on room air. General: In no acute distress. Speaking in full sentences without apparent shortness of breath. Head and neck exam: Normocephalic, atraumatic. Neck: No obvious JV distention. Heart exam: Regular rate and rhythm without murmurs, gallops, rubs appreciated. Lungs clear. Back: No CVA tenderness to palpation. Abdomen is soft, nontender. Extremities: Groin site looks good. No hematoma. 2+ DP pulses appreciated. Skin without breakdown appreciated. Neuro: Alert and oriented x3. Gait is not tested. Psych: Appropriate mood and affect. LABORATORIES: Show a white count 6.2, H and H 12.4 and 37.1, which is stable. Platelets 219,000, stable. Sodium 141, potassium 4.1, chloride and bicarb 105 and 23 respectively. BUN and creatinine 13 and 1.2. Cholesterol shows HDL 64, LDL 68.4. IMPRESSION: Patient is doing very well. He denies any recurrent symptoms. He has no arrhythmias on telemetry. He was just recently put on metoprolol by his primary care provider. PLAN: 1. Have him do some laps around the hospital. If he feels good, he may go home today. He will need to have a prescription for Plavix and I will have him take full dose aspirin for one month and transitioning to a baby aspirin. 2. Continue with metoprolol, continue with statin. 3. As I believe he is on metformin, so he should hold that for one additional day before restarting. 4. I will have my office arrange for followup with him in approximately 2-3 weeks. 30 minutes was spent reviewing the cath films with the patient, discussing the importance of compliance with ASA and plavix, and examining him. I also communicated my recommendations to the hospital team ROSIE
--- NOTE | 2016-11-03 13:00 | NUR ---
Discharge Patient ambulated off unit with a family friend in a stable condition. IV DC'd intact, tele removed, all personal belongings with patient. New prescription of Plavix discussed in addition to watching for sx of bleeding -- verbalized understanding. All other medications continued with next due times discussed -- patient verbalized understanding. Right groin site C/D/I, no signs of oozing or hematoma noted.
--- NOTE | 2016-11-03 13:05 | PCM.DC.MED ---
Discharge Summary Date of Service Nov 03, 2016 Dates of Hospitalization Date of Hospital Admission Nov 01, 2016 at 17:53 Date of Discharge: Nov 03, 2016 Providers: Admitting Physician: Nagi Mukherjee MD Primary Care Physician: Scotty Renee MD Attending Physician: Nagi Mukherjee MD Diagnosis at Time of Discharge Diagnosis at Time of Discharge Non-ST elevation myocardial infarct Type II diabetes, chronic Chronic hypothyroidism Dyslipidemia chronic Consultations Patient's case and follow-up plan was discussed with Dr. Ball cardiology Procedures XRay, CTs & MRIs X-RAY CHEST ONE VIEW, PORTABLE 11/01 Bones and chest wall: No suspicious bony lesions. Overlying soft tissues appear unremarkable. IMPRESSION: Minimal right basilar streaky opacity. This could represent atelectasis, focal edema or potentially developing infiltrate. Dictated by: Melissa Amaya M.D. on 11/01/2016 at 16:01 Approved by: Melissa Amaya M.D. on 11/01/2016 at 16:04 Cardiac Echo Impression Complete echocardiogram performed 11/02/2016 Interpretation Summary 1. Normal left ventricular size and wall thickness with wall motion abnormalities as noted below. The estimated EF is 45 to 50% 2. Normal right ventricular size and systolic function 3. No evidence for significant valvular pathology There is no old study for comparison Invasive Procedures Cardiac catheterization: IMPRESSION: 1. 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 2. Successful IVUS and stent placed in the left anterior descending artery. 3. End-diastolic pressure, approximately 15 (post contrast without evidence of gradient on pullback). Brief History Scotty Mcrae is a 71 year old male with Diabetes and hypothyroidism presents to [facility] emergency department with intermittent chest pain. Patient reported the onset was a weeks ago, while hiking. Episodes had been waxing and waning with intermittent onset. This morning, the patient experienced one hour of dull, constant substernal chest pain rated 5/10, non radiating and another three hour episode this afternoon from [id number]. The patient took ASA today and Nitro x1 just prior to arrival, with some relief of his pain. Denies shortness of breath, nausea, diaphoresis, fever, cough, constipation, abdominal pain, melena, hematochezia. He has never had similar symptoms in the past. He was prescribed Metoprolol for the stress test his abnormal stress test yesterday at [facility]. He took the first dose last night Case discussed with Dr Shi, he spoke to Dr Lantigua who recommended admission, Heparin drip as well as initiating Ticagrelor. Hospital Course Scotty Mcrae is a 71 year old male with Diabetes and hypothyroidism presents to [facility] emergency department with intermittent chest pain, found to have elevated troponins and rising. Underwent cardiac catheterization necessitating single stent placement, currently recovering. The patient was admitted secondary to elevated troponins and chest pain. The patient had a troponin of 0.079 and 0.11 with positive CK-MB of 18.9. The patient had an echo on 11/02/16 showing the patient with an EF of 45-50%. The patient was taken to [facility] and had to have a stent placed in the LAD. The patient has been instructed that he will be on aspirin and Plavix for the next year and after one year the patient may resume taking aspirin only. The patient should follow up closely with Dr. Ball in 2-4 weeks. The patient was instructed to stop taking his metformin and to restart taking the metformin on . He was also noted that the patient's TSH was very low and had a high normal T4. The patient's Synthroid was decreased to 100 g daily and it is recommended that he follow-up with his primary care physician in 4-6 weeks for reassessment. The patient is being discharged home in stable condition. 1. Non ST elevation Myocardial infarct. Present on admission - Risks factors for acute coronary syndrome includes sex and age, Diabetes (A1c 7.6), Hyperlipidemia and former smoker. - Troponin continued to rise throughout night prior to catheterization - Catheterization: required one stent to the LAD (electronic record system having difficulties at time of this dictation, specifics of affected coronary artery and percent occlusion not available to me at this time.) - Echocardiogram: EF 45-50% otherwise normal - Continue on on telemetry - Stop heparin - Antiplatelet therapy with Aspirin 81 mg and clopidogrel 75 mg daily - Continue metoprolol tartrate 25 mg twice a day - Heart healthy diet 2. Chronic Diabetes Type 2, present on admission, stable - holding Metformin and Glipizide - medium Lispro correction algorithm - A1c 7.6 3. Chronic Hypothyroidism, present on admission, stable - TSH low, T4 high normal. -Continue Synthroid dose to 100 mcg daily - Follow-up as an outpatient. In 4-6 weeks for reassessment. 4. Chronic Dyslipidemia, present on admission, controlled. - Lipids at goal - continuing Lovastatin - Acetaminophen as needed for mild pain/fever/headache - Bowel regimen as needed - Antiemetic as needed Disposition: Most likely discharge home tomorrow will need to follow-up with cardiology, and primary care. No foreseeable barriers to discharge at this time Exam Vital Signs (Last) Date Time Temp Pulse Resp B/P Pulse Ox O2 Delivery O2 Flow Rate FiO2 11/03/16 09:04 36.7 80 16 113/64 98 Room Air Exam Physical Exam: GEN: Patient was awake, alert, responding appropriately to questions HEENT: PERRLA, EOMI, Neck soft supple, trachea midline, nomocephalic/atraumatic CV: +S1/S2, RRR, no murmur auscultated Respiratory: CTAB, no wheezes, rales, rhonchi GI: +bowel sounds x4, soft, compressible, non TTP EXT: no c/c/e Neuro: CN II-XII grossly intact Psych: mood and affect were appropriate Test 11/01/16 15:53 11/01/16 19:50 11/01/16 23:20 11/02/16 05:13 Hemoglobin A1c 7.6% (4.8-5.6) Magnesium Level 2.0mg/dL (1.6-2.6) Total Bilirubin 0.2mg/dL (0.0-1.2) Aspartate Amino Transf (AST/SGOT) 19U/L (0-50) Alanine Aminotransferase (ALT/SGPT) 15U/L (0-44) Alkaline Phosphatase 55U/L (25-160) Total Protein 7.0g/dL (6.4-8.4) Albumin 4.2g/dL (3.4-5.0) Thyroid Stimulating Hormone (TSH) 0.076uIU/mL (0.450-4.500) Hold Rao Top Tube Received (Received) Urine Color Yellow (YELLOW) Urine Appearance Clear (CLEAR,HAZY) Urine pH 5.0 (5.0-8.0) Urine Specific Scott 1.020 (1.003-1.035) Urine Protein Negativemg/dL (NEG,TRACE) Urine Glucose (UA) 500mg/dL (NEGATIVE) Urine Ketones 15mg/dL (NEGATIVE) Urine Occult Blood Trace (NEGATIVE) Urine Nitrite Negative (NEGATIVE) Urine Bilirubin Negative (NEGATIVE) Urine Urobilinogen Normalmg/dL (NORMAL) Urine Leukocyte Esterase Negative (NEGATIVE) Urine RBC 0-2/hpf (0-2) Urine WBC 0-5/hpf (0-5) Urine Epithelial Cells Occasional/hpf (NONE-MOD) Urine Crystals None seen (NONE SEEN) Urine Bacteria None/hpf (NONE-FEW) Urine Hyaline Casts None/lpf (NONE) Urine Granular Casts None seen (NONE SEEN) Urine Waxy Casts None seen (NONE SEEN) Urine Red Blood Cell Casts None seen (NONE SEEN) Urine White Blood Cell Casts None seen (NONE SEEN) Urine Mucus None seen (None Seen) Urine Trichomonas None seen (NONE SEEN) Urine Yeast None (NONE SEEN) Urinalysis Comment None Urine Culture Reflexed Not indicated Total Creatine Kinase 172U/L (21-232) Creatine Kinase MB 18.9ng/mL (0.0-10.4) Creatine Kinase MB % 11.0% (0.0-5.0) Troponin T 0.161ug/L (0.0-0.011) Test 11/02/16 05:15 11/02/16 17:08 11/03/16 02:35 Neutrophils (%) (Auto) 75.6% (40-74) Lymphocytes (%) (Auto) 15.6% (14-46) Monocytes (%) (Auto) 7.5% (4-12) Eosinophils (%) (Auto) 0.9% (0-5) Basophils (%) (Auto) 0.4% (0-3) Triglycerides Level 58mg/dL (0-149) Cholesterol Level 144mg/dL (100-199) LDL Cholesterol, Calculated 68.400mg/dL (0-99) VLDL Cholesterol 11.600mg/dL HDL Cholesterol 64mg/dL (>39) Cholesterol/HDL Ratio 2.25 (0.0-4.4) Free Thyroxine 1.76ng/dL (0.82-1.77) Activated Partial Thromboplast Time 52.9sec (22.8-33.0) White Blood Count 6.2th/mm3 (3.8-10.1) Red Blood Count 3.84mil/mm3 (4.40-5.80) Hemoglobin 12.4g/dL (13.8-17.2) Hematocrit 37.1% (41.0-50.0) Mean Corpuscular Volume 96.6fL (81-100) Mean Corpuscular Hemoglobin 32.3pg (27.0-35.0) Mean Corpuscular Hemoglobin Concent 33.4% (32.0-37.0) Red Cell Distribution Width 12.0% (12.3-15.4) Platelet Count 219bil/L (150-400) Sodium Level 141mEq/L (134-144) Potassium Level 4.1mEq/L (3.5-5.2) Chloride Level 105mEq/L (97-108) Carbon Dioxide Level 23mmol/L (18-29) Blood Urea Nitrogen 13mg/dL (8-27) Creatinine 1.20mg/dL (0.76-1.27) Estimat Glomerular Filtration Rate 63mL/min (>59) Glucose Level 153mg/dL (60-99) Calcium Level 8.6mg/dL (8.5-10.1) Discharge Medications Discharge Medications Aspirin Chew (Aspirin Chew) 81 Mg Chew 81 MG PO QAM (Reported) Clopidogrel (Clopidogrel) 75 Mg Tablet 75 MG PO DAILY Prescribed by: SHEILA ABARCA DO Glipizide (Glipizide) 10 Mg Tablet 10 MG PO BIDWM (Reported) Levothyroxine (Levothyroxine) 150 Mcg Tablet 100 MCG PO QAM Prescribed by: SHEILA ABARCA DO Lovastatin (Lovastatin) 20 Mg Tablet 40 MG PO HS (Reported) Metformin (Glucophage) 1,000 Mg Tablet 1,000 MG PO BIDWM (Reported) Metoprolol Tartrate (Metoprolol Tartrate) 25 Mg Tablet 25 MG PO BID (Reported) As needed Nitroglycerin SL (Nitroglycerin SL) 0.4 Mg Tab.subl 0.4 MG SL Q5MIN PRN PRN For Chest Pain (Reported) Additional med instructions Your levothyroxine has been decreased from 150 g to 100 g. Please take this new medication and DO NOT continue the 150 g dose. Please follow-up with your primary care physician within 4-6 weeks for follow-up of your thyroid. You had a stent placed in your left anterior descending artery please continue to take Plavix daily for the next year along with your aspirin. Followup Plan Discharge Diet: Heart Healthy Discharge Activity: Other (gradually returned to her normal daily activities. Please take it easy for the next 2 days before returning to her normal daily activities.) Follow-up Provider: Scotty Renee MD Follow-up with PCP in: 1 week (if an appointment has not already been made please call to schedule an appointment) Provider: Gisselle Ball MD Follow-up in: 2 weeks (please follow-up with Dr. Ball in 2-4 weeks. If you do not hear from her office please call to make an appointment.) Time spent Greater than 35 minutes copies to: Scotty Renee MD, Precious L DO Nov 03, 2016 11:47
--- NOTE | 2016-11-03 13:16 | NUR ---
Social Work Note: Initial Assessment/Discharge Data& Assessment: EMR reviewed. Per pt is medically ready to discharge home via POV. SW met with pt at bedside to confirm discharge plan and assess for any unmet needs. Scotty Mcrae is a 71 year old male admitted on 11/01/2016 for NSTEMI. Per MD pt is medically improved and ready for discharge. Pt has Medicare and [facility] Supplemental insurance coverage. Pt sees Scotty Renee MD for primary care. Pt lives in [place] with his and is independent at baseline with all ADL's. Pt drives and does not use any DME. Pt does not have HH or SNF hx. Pt does not have VA benefits but does have LTC insurance. Pt has DPOA paperwork completed at home, SW requested a copy for his chart when possible. Pt confirmed his family will be transporting him home today. Pt denies any other needs. No other discharge needs identified. Plan: Per pt is medically ready to discharge home via POV. Pt is ambulating at baseline. Pt denies any other needs. No other discharge needs identified. MADISON Cote Addendum: 11/03/16 at 1325 by SHOLA MORTON Amended: Links added.
== END 2016-11-03 13:16 | disposition home or self-care (01) | DRG 247 ==
LOC: SED 15:09 → PCC 17:53 → OBSVTOIN 17:53 → PCC 19:34
PROVIDERS: ADMIT Hospitalist; ATTEND Hospitalist
PROC: 027034Z Dilation of Coronary Artery, One Artery with Drug-eluting Intraluminal Device, Percutaneous Approach (ICD-10-PCS; principal; 2016-11-02)
PROC: 4A023N7 Measurement of Cardiac Sampling and Pressure, Left Heart, Percutaneous Approach (ICD-10-PCS; 2016-11-02)
PROC: B2111ZZ Fluoroscopy of Multiple Coronary Arteries using Low Osmolar Contrast (ICD-10-PCS; 2016-11-02)
PROC: B240ZZ3 Ultrasonography of Single Coronary Artery, Intravascular (ICD-10-PCS; 2016-11-02)
DX: I21.4 Non-ST elevation (NSTEMI) myocardial infarction (principal); E11.9 Type 2 diabetes mellitus without complications; E03.9 Hypothyroidism, unspecified; Z79.4 Long term (current) use of insulin; E78.5 Hyperlipidemia, unspecified; Z87.891 Personal history of nicotine dependence